=== PATIENT | female | born 1990 | race Caucasian/White ===

== ENCOUNTER 2020-08-25 08:23 | Inpatient (IN) | payer OTHER ==
[2020-08-25] MEDS ORDERED: hydrALAZINE 20 MG/ML VIAL SLOW IVP PRN ×3 (08:46→22:03)
[2020-08-25 09:08] VITALS: BMI 31.7
--- NOTE | 2020-08-25 09:20 | PDOC.LDHP ---
Labor and Delivery H&P Chief complaint: contractions HPI: Patient of Cyn mckeon CC: CTX 30 yo at 39 weeks 3 days here with CTX sice 0400 now every 3-5 minutes. No LOF, no VB. Good FM. Denies recent trauma or similar issues. Review of Systems: No MCINTYRE No SOB No sxs No cough No vision changes Current gestational age (weeks): 39 (3 days) Due date: 08/29/20 Dating criteria: last menstrual period Grav: 2 Para: 1 OB History Details: x1 Current complications: none Abnormal US findings: No Current medications: pre- vitamins Previous surgical history: none Allergies/Adverse Reactions: Allergies Allergy/AdvReac Type Severity Reaction Status Date / Time penicillin G Allergy Intermediate Rash Verified 08/25/20 09:09 Sulfa (Sulfonamide Allergy Verified 08/25/20 09:09 Antibiotics) Social history: none - Physical Exam Vital signs reviewed and normal: yes (98 72 16 117/70) General: NAD Lungs: CTAB Abdomen: gravid Extremeties: no edema FHT: category 1 Griffin contractions every: every 3-5 - Vaginal Exam cm dilated: 8 (same exam as last ) Effacement: 75% Station: -2 - Assessment Latent phase at full term, cm. - Plan Plan: observation in L&D (Cyn Mckeon aware. We will labor obs for at least 2 hrs to see if CX changes. BPs ok. Offer pain meds)
[2020-08-25] MEDS ORDERED: Butorphanol Tartrate 1 MG/ML VIAL IM SCH ×2 (10:15→10:24)
--- NOTE | 2020-08-25 10:24 | PDOC.BPN ---
- Brief Progress Note ordered stadol and IVF for comfort care
[2020-08-25] MEDS ORDERED: Promethazine HCl 25 MG/ML VIAL IM PRN (11:26)
[2020-08-25] MEDS ORDERED: HYDROcodone/Acetaminophen 5/325 mg Tablet PO PRN ×3 (11:26→22:03)
[2020-08-25] MEDS ORDERED: NS / Oxytocin 40 units/1000ml 1,000 ML IV PRN (11:26)
[2020-08-25] MEDS ORDERED: Lidocaine 1% (PF) 30 ML VIAL SC PRN (11:26)
[2020-08-25] MEDS ORDERED: Ibuprofen 800 MG TAB PO PRN (11:26)
[2020-08-25] MEDS ORDERED: Ondansetron PF 4 MG/2 ML Vial IVP PRN (11:26)
[2020-08-25] MEDS ORDERED: Butorphanol Tartrate 1 MG/ML VIAL SLOW IVP PRN (11:26)
--- NOTE | 2020-08-25 11:29 | PDOC.BPN ---
- Brief Progress Note Patient had RN recheck and is now 405cm, BOWI. Due to CX exam and continue dCTX pains, we will direct admit to Mari Mckeon. Patient states GBS neg BPs ok
[2020-08-25 11:42] LABS: Hemoglobin 12.7 g/dL (12.0-16.0); Mean Corpuscular Hemoglobin 30.8 pg (27.0-31.0); Mean Platelet Volume 8.5 fL (7.4-10.4); Platelet Count 208 thou/uL (130-400); RBC Distribution Width 16.2 % (11.5-14.5); Red Blood Cell (RBC) Count 4.13 mill/uL (4.20-5.40); White Blood Cell (WBC) Count 15.3 thou/uL (4.8-10.8)
[2020-08-25] MEDS: Lactated Ringer's 1,000 ML IV SCH ×2 (11:48→13:34)
[2020-08-25] MEDS ORDERED: Bupivacaine 0.5% 20 ML, fentaNYL Citrate/PF 400 MCG in Sodium Chloride 0.9% 72 ML EPIDURAL SCH (12:15)
[2020-08-25] MEDS ORDERED: DISCONTINUE ALL PREVIOUS NARCOTICS FS SCH (12:15)
[2020-08-25 12:20] LABS: Syphilis Antibody Nonreactive (Nonreactive); Syphilis Antibody Index 0.03 S/CO (<1.00 Non-Reactive)
[2020-08-25 12:22] LABS: HBSAg Index 0.26 S/CO (0-0.99); HIV (1/2) Antibody/Antigen Non-Reactive (NonReactive); HIV 1/2 INDEX 0.12 S/CO (<1.00); Hep B Surf Ag Non-Reactive S/CO (NonReactive)
[2020-08-25] MEDS ORDERED: Bupivacaine 0.25% HCL 30 ML VIAL ONE (13:59)
[2020-08-25] MEDS ORDERED: ePHEDrine 50 MG/ML VIAL ONE (13:59)
--- NOTE | 2020-08-25 16:56 | PDOC.BPN ---
- Brief Progress Note Encounter Date: 08/26/20 Encounter Time: 16:55 is 7100/-1 Requesting AROM. Clear fluid. Baseline 145bpm, moderate variability, +Accels, neg decels. Will start Pitocin if no change at next check.
--- NOTE | 2020-08-25 19:02 | PDOC.OPDEL ---
OB Operative/Delivery Note Delivery Dr/Surgeon: light Pre-Delivery Diagnosis: active labor Procedure/Post Delivery Dx: spontaneous vaginal delivery Weeks gestation: 39 (3 days) Anesthesia: epidural - Findings A Sex: male - 1 min: 9 - 5 min: 9 - Additional Findings/Plan Placenta delivered: spontaneous Repaired Obstetrical Laceration: vaginal (1st) Estimated blood loss: 60mL Post delivery plan: routine recovery
[2020-08-25] MEDS ORDERED: NS / Oxytocin 40 units/1000ml 1,000 ML IV SCH (22:03)
[2020-08-25] MEDS ORDERED: Benzocaine-Menthol 82.5 ML CAN TOP PRN (22:03)
[2020-08-25] MEDS ORDERED: Lanolin Ointment 7 GM TUBE TOP PRN (22:03)
[2020-08-25] MEDS ORDERED: Milk Of Magnesia 30 ML UDCUP PO PRN (22:03)
[2020-08-25] MEDS ORDERED: Bisacodyl 10 MG SUPP PR PRN (22:03)
[2020-08-25] MEDS ORDERED: Preparation H Ointment 28 GM TUBE PR PRN (22:03)
[2020-08-25] MEDS ORDERED: Docusate Calcium (SURFAK) 240 MG CAP PO SCH (22:30)
[2020-08-25 22:51] LABS: SARS-CoV-2 MS2 Positive; SARS-CoV-2 N Gene Negative; SARS-CoV-2 S Gene Negative; SARS-CoV-2 by NAA Not Detected (NotDetected); SARS-CoV-2 orf1ab Negative
[2020-08-25] MEDS: HYDROcodone/Acetaminophen 5/325 mg Tablet PO PRN (23:52)
[2020-08-26] MEDS: HYDROcodone/Acetaminophen 5/325 mg Tablet PO PRN ×3 (03:56→14:18)
[2020-08-26] MEDS: Ibuprofen 800 MG TAB PO SCH ×3 (05:06→21:26)
--- NOTE | 2020-08-26 06:50 | PDOC.PP ---
Post Progress Note Post Day #: 1 Subjective: Doing well. No concerns. PO intake tolerated: yes Flatus: yes Ambulation: yes Vital Signs (12 hours) Temp Pulse Resp BP 08/26/20 03:29 98.4 F 68 16 114/55 L 08/26/20 00:44 98.0 F 69 16 110/54 L 08/25/20 23:50 98.0 F 72 18 115/55 L 08/25/20 22:45 98.1 F 81 16 116/57 L Weight Weight 83.915 kg - Physical Examination General: NAD Cardiovascular: no m/r/g, RRR Respiratory: clear to auscultation bilaterally, non-labored breathing Abdominal: + bowel sounds, lochia, no distention, appropriately TTP Extremities: negative homans (B) Neurological: no gross focal deficits Psychiatric: A&Ox3, normal affect Result Diagrams: 08/25/20 11:32 Additional Labs: Post Labs Hep Bs Antigen Non-Reactive S/CO (NonReactive) 08/25/20 11:32 Blood Type AB NEGATIVE 08/25/20 13:00 (1) Vaginal delivery Code(s): O80 - ENCOUNTER FOR FULL-TERM UNCOMPLICATED DELIVERY Status: Acute - Assessment/Plan PPD #1, s/p 08/25/2020. - Discussed potential for 24hr d/c and she is more inclined to stay through the night tonight. Anticipate d/c tomorrow AM. - Doing well, pain well controlled. Lochia slowing. - Routine recovery. Plan discussed with Dr. Richards attending. Maurice SU PGY2
[2020-08-26] MEDS: Ferrous Sulfate 325 MG TAB PO SCH ×2 (08:11→15:50)
[2020-08-26] MEDS: Docusate Calcium (SURFAK) 240 MG CAP PO SCH ×2 (08:38→21:27)
[2020-08-26] MEDS: Prenatal Vitamin 1 TAB PO SCH (08:38)
[2020-08-26] MEDS ORDERED: Adacel (T-DAP) 0.5 ML SYRINGE IM ONE (09:00)
[2020-08-27] MEDS: Ibuprofen 800 MG TAB PO SCH (05:25)
--- NOTE | 2020-08-27 07:45 | PDOC.PP ---
Post Progress Note Post Day #: 2 PO intake tolerated: yes Flatus: yes Ambulation: yes Vital Signs (12 hours) Temp Pulse Resp BP 08/26/20 21:00 98.1 F 70 16 116/53 L Weight Weight 185 lb - Physical Examination Abdominal: no distention, appropriately TTP Result Diagrams: 08/25/20 11:32 Additional Labs: Post Labs Hep Bs Antigen Non-Reactive S/CO (NonReactive) 08/25/20 11:32 Blood Type AB NEGATIVE 08/25/20 13:00 - Assessment/Plan Doing well post day 2..discharge home. f/u 6 weeks.
[2020-08-27] MEDS: Ferrous Sulfate 325 MG TAB PO SCH (08:18)
[2020-08-27] MEDS: Docusate Calcium (SURFAK) 240 MG CAP PO SCH (08:33)
[2020-08-27] MEDS: Prenatal Vitamin 1 TAB PO SCH (08:33)
[2020-08-27] MEDS: HYDROcodone/Acetaminophen 5/325 mg Tablet PO PRN (08:33)
[2020-08-27 10:18] VITALS: BP 122/59; TEMP 98.3
== END 2020-08-27 13:04 | disposition home or self-care (01) | DRG 807 ==
LOC: L&D/OP 08:23 → L&D 11:27 → 3SW 23:25
PROVIDERS: ADMIT Obstetrics & Gynecology; ATTEND Obstetrics & Gynecology
PROC: 10E0XZZ Delivery of Products of Conception, External Approach (ICD-10-PCS; principal; 2020-08-25)
PROC: 10907ZC Drainage of Amniotic Fluid, Therapeutic from Products of Conception, Via Natural or Artificial Opening (ICD-10-PCS; 2020-08-25)
PROC: 0HQ9XZZ Repair Perineum Skin, External Approach (ICD-10-PCS; 2020-08-25)
DX: O70.0 First degree perineal laceration during delivery (principal); Z37.0 Single live birth; Z3A.39 39 weeks gestation of pregnancy; Z88.2 Allergy status to sulfonamides; Z88.0 Allergy status to penicillin; Z20.828 Contact with and (suspected) exposure to other viral communicable diseases
CPT/HCPCS: 36415; 51702; 85027; 86780; 86850; 86900; 86901; 87340; 87389; 87635; 99285; J0595; J3010; J3490; S0020; U0003